=== PATIENT | male | born 1960 | race Caucasian/White ===

== ENCOUNTER → 2017-10-30 07:35 | Outpatient (CLI) | payer OTHER, SELFPAY ==
--- NOTE | 2017-10-30 | DI.RAD.S_ITS ---
PROCEDURE: FL UPPER GI W AIR INDICATIONS: 57 year-old male with dysphagia. COMPARISON: None. 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 No suspicious abdominal calcifications. Visualized solid organ contours appear normal. Several nonacute inferior right rib fractures are present.. Esophagus: Esophageal mucosa is normal on air-contrast views. On single-contrast views, there is normal esophageal peristalsis. No strictures, extrinsic mass effects, or diverticula. There is small hiatal hernia; no elicited gastroesophageal reflux. Patient was unable to ingest a calibrated barium tablet for further evaluation. Stomach: The stomach is normally distensible, with normal rugal fold thickness. No mucosal masses or ulcers. Pylorus and duodenal bulb appear normal in morphology. Duodenal folds are normal in thickness as well. IMPRESSION: Small hiatal hernia, without elicited gastroesophageal reflux during the examination. No mucosal abnormalities identified of the esophagus or stomach. Dictated by: Deep Elliott M.D. on 10/30/2017 at 8:34 Approved by: Deep Elliott M.D. on 10/30/2017 at 8:39
== END ==
PROVIDERS: PCP Family Medicine; Visit Provider Family Medicine
DX: R13.10 Dysphagia, unspecified (principal); K44.9 Diaphragmatic hernia without obstruction or gangrene
CPT/HCPCS: 74247

== ENCOUNTER → 2021-09-19 08:41 | Outpatient (CLI) | payer OTHER, SELFPAY ==
--- NOTE | 2021-09-19 | DI.MRI.S_ITS ---
PROCEDURE: MR LUMBAR SPINE WO CON INDICATIONS: Lumbago with sciatica, left side TECHNIQUE: Noncontrast sagittal T1 spin echo and T2 fast echo, sagittal STIR, and T2 fast spin echo through the lumbar spine. In cases with scoliosis, additional coronal T2 fast spin echo may be performed. COMPARISON: None. FINDINGS: Image quality: Excellent. Alignment and Curvature: There is trace, approximately 2-3 millimeters of L4-L5 anterolisthesis. Bone Marrow: Modic type 2 reactive endplate changes noted adjacent the L4-L5 disc. Small, benign intraosseous hemangioma noted in the S1 vertebral body. No acute vertebral body compression fractures. Spinal Cord: Conus medullaris terminates at the L1 level. Visualized cord demonstrates normal signal and size. Paraspinous Soft Tissues: No paravertebral masses. T12-L1: Normal appearance. L1-L2: Normal appearance. L2-L3: Loss of disc signal. Mild, diffuse disc bulge. Mild bilateral facet hypertrophy. Mild to moderate narrowing of the central canal. Mild to moderate bilateral neural foraminal narrowing. No neural compression. L3-L4: Loss of disc signal. Moderate, diffuse disc bulge. Mild bilateral facet hypertrophy. Mild ligamentum flavum hypertrophy. Severe narrowing of the central canal with compression of the nerve roots of the cauda equina. Mild to moderate bilateral neural foraminal narrowing. L4-L5: Loss of disc signal and height. Mild to moderate diffuse disc bulge. Moderate facet and mild ligamentum flavum hypertrophy. Severe narrowing of the central canal with compression of the nerve roots of the cauda equina. Mild right and severe left neural foraminal narrowing with compression of the exiting left L4 nerve root. L5-S1: Loss of disc signal and height. Mild, diffuse disc bulge. Mild bilateral facet hypertrophy. No central stenosis. Mild bilateral neural foraminal narrowing. No neural compression. IMPRESSION: 1. Multilevel degenerative disc disease. 2. Multilevel facet arthropathy. 3. Severe L3-L4 and L4-L5 central canal narrowing with compression of the traversing nerve roots of the cauda equina. 4. Severe left L4-L5 neural foraminal narrowing with compression of the exiting left L4 nerve root. 5. Trace L4-L5 degenerative spondylolisthesis. Dictated by: Afshan Lr MD, PhD on 09/19/2021 at 12:10 Approved by: Afshan Lr MD, PhD on 09/19/2021 at 12:13
== END ==
PROVIDERS: PCP Family Medicine; Referring Provider Family Medicine; Visit Provider Family Medicine
DX: M51.16 Intervertebral disc disorders with radiculopathy, lumbar region (principal); M51.17 Intervertebral disc disorders with radiculopathy, lumbosacral region; M47.26 Other spondylosis with radiculopathy, lumbar region; M47.27 Other spondylosis with radiculopathy, lumbosacral region; M48.061 Spinal stenosis, lumbar region without neurogenic claudication
CPT/HCPCS: 72148

== ENCOUNTER → 2023-06-08 09:08 | Outpatient (CLI) | payer OTHER, SELFPAY ==
--- NOTE | 2023-06-08 | DI.RAD.S_ITS ---
PROCEDURE: XR CERVICAL SPINE 4V OR 5V INDICATIONS: neck pain TECHNIQUE: 5 views of the cervical spine acquired. COMPARISON: None. FINDINGS: Bones: No acute fractures or dislocations to the C7 level. There is mild reversal of the normal cervical lordosis. 2 mm grade 1 anterolisthesis at C2-3. 3 mm grade 1 retrolisthesis at C4-5. Multilevel disc space narrowing and degenerative endplate changes are seen that are most prominent at the C3-4 and C4-5 disc space levels. There is multilevel uncovertebral joint and facet hypertrophy. Oblique views demonstrate multi to level moderate neural foraminal narrowing at C3-4 through C6-7 on the left. Right-sided neural foramina are not well evaluated due to positioning, and the degree of neural foraminal stenosis cannot be estimated. Soft tissues: No prevertebral soft tissue swelling. IMPRESSION: Moderate severe multilevel spondylosis and degenerative spondylolisthesis with multifocal neural foraminal narrowing. Cervical spine MRI could be performed for further evaluation if indicated clinically. Approved by: Deonte Samaniego M.D. on 06/08/2023 at 12:32
== END ==
PROVIDERS: PCP Family Medicine; Referring Provider Family Medicine; Visit Provider Family Medicine
DX: M47.812 Spondylosis without myelopathy or radiculopathy, cervical region (principal); M43.12 Spondylolisthesis, cervical region; M48.02 Spinal stenosis, cervical region; M54.2 Cervicalgia
CPT/HCPCS: 72050

== ENCOUNTER 2024-06-30 09:20 | Day surgery (SDC) | payer OTHER, SELFPAY ==
--- NOTE | 2024-06-30 | PATH_ITS ---
[facility] Accession Number: [id number] No. of containers..01 Tissue . 01 Material submitted: . colon - CECAL COLON POLYP . 01 Diagnosis: CECAL COLON POLYP: Tubular adenoma. STO 07/04/2024 1513 Local . 01 Electronically signed: . Gonzales Centeno MD, Pathologist NPI- [id number] . 01 Gross description: . Received in formalin with two patient identifiers and 1. Cecal colon polyp, is a single ramos soft tissue fragment, 1.3 x 0.6 x 0.5 cm. Inked blue, bisected, and submitted entirely in A1. ([id number]) /MRV 07/04/2024 1513 Local . 01 Pathologist provided ICD-10: D12.0 . 01 CPT . 051004 Specimen Comment: A courtesy copy of this report has been sent to [phone] Performed at: [address] [facility] [address], [place], [place] [id number] MD Gonzales Centeno MD Phone: [phone]
[2024-06-30 10:13] VITALS: BP 168/88; PULSE 103; RESP 16; TEMP 36.5; O2SAT 96
[2024-06-30] MEDS: SODIUM CHLORIDE 0.9% 1,000 ML 150 ML IV (10:19)
--- NOTE | 2024-06-30 10:50 | P.HP_ITS ---
History of Present Illness History of Present Illness Date Patient Seen: 06/30/24 Time Patient Seen: 10:50 Chief complaint: Colonoscopy Narrative: Jackson is a 63-year-old man here for a colonoscopy. His last one was 13 years ago. No known family history of colon cancer. [facility] Surgical History (Updated 06/30/24 @ 10:05 by Jessica Snow RN) History of surgery on lower extremity (~2023) History of back surgery (~2021) Hx of knee surgery (~2016) Social History Smoking Status: Former smoker Meds Home Medications and Allergies Home Medications Medication Instructions Recorded Confirmed Type sodium,potassium,mag sulfates 17.5 See Rx Instructions PO .COMPLEX 05/26/24 Rx gram-3.13 gram-1.6 gram oral soln #354 mL (Suprep Bowel Prep Kit) atorvastatin 10 mg tablet 10 mg PO DAILY 06/30/24 06/30/24 History gemfibrozil 600 mg tablet 600 mg PO BID 06/30/24 06/30/24 History lisinopril 10 mg tablet 20 mg PO DAILY 06/30/24 06/30/24 History multivitamin with minerals-folic 1 tab PO DAILY 06/30/24 06/30/24 History acid 12 mcg chewable tablet (Centrum Adults) omega 8-ulr-bgm-fish oil 60 mg-90 1 cap PO DAILY 06/30/24 06/30/24 History mg-500 mg capsule (Fish Oil) Allergies Allergy/AdvReac Type Severity Reaction Status Date / Time INGREDIENT: NKA - NO KNOWN Allergy Unknown Uncoded 09/09/17 11:47 ALLERGIES Exam Vital Signs (past 8 hours): - 06/30/24 10:13 Temperature 97.7 F Pulse Rate 103 H Respiratory Rate 16 Blood Pressure 168/88 H Pulse Oximetry 96 Oxygen Delivery Method Room Air Oxygen Delivery Method Room Air Const General: No acute distress Resp Effort & Inspection: normal respiratory effort Assessment & Plan Assessment and plan (1) Colon cancer screening: Status: Acute Plan Colonoscopy Time-Based Coding :: [TOTAL MINUTES] spent with patient and on the chart (including review of chart, obtaining history, exam, reviewing outside data, placing orders, documenting exam and treatment plan, and counseling patient) on [DATE]. 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
--- NOTE | 2024-06-30 11:20 | PM.OP.COLON ---
Operative Date/Time/Diagnoses Date of procedure: 06/30/24 Time of procedure: 11:20 Pre-op diagnosis: Colon cancer screening Post-op diagnosis: same Procedure & Clinicians Study performed: Colonoscopy Same procedure as scheduled: Yes Surgeon: Rhett Tolliver Procedure Notes Procedure in detail: Surgeon: Rhett Tolliver MD Anesthesia: Josephine Becerra CRNA Procedure: The patient was brought to the endoscopy suite, placed in left lateral decubitus position. The patient was connected to monitoring devices. A time-out was performed. Sedation was administered. Once the patient was adequately sedated, a digital rectal exam was performed and was normal. The scope was then inserted and advanced to the cecum where the appendiceal orifice was identified and photographed. The scope was then slowly withdrawn over greater than 6 minutes. The mucosa was thoroughly inspected. There was a 3 mm polyp in the cecum removed with a cold snare. Sigmoid colon diverticulosis was noted. The scope was retroflexed in the rectum. Internal hemorrhoids were noted. No other abnormalities were seen. The scope was straightened and removed. The patient was awakened and brought to recovery. Scope withdrawal time: 8 minutes Sedation time: 11 minutes EBL: 2 mL Findings: Small cecal polyp, sigmoid colon diverticulosis, internal hemorrhoids Post-procedure Disposition: PACU
[2024-06-30 11:21] VITALS: BP 108/71; PULSE 97; RESP 16; TEMP 37.2; O2SAT 95
[2024-06-30 11:26] VITALS: BP 105/71; PULSE 96; RESP 12; TEMP 37.1; O2SAT 95
[2024-06-30 11:33] VITALS: BP 109/75; PULSE 98; RESP 12; TEMP 37.1; O2SAT 96
== END 2024-06-30 11:49 | disposition home or self-care (01) ==
PROVIDERS: PCP Family Medicine; Referring Provider Surgery; Visit Provider Surgery
PROC: 0DJD8ZZ Inspection of Lower Intestinal Tract, Via Natural or Artificial Opening Endoscopic (ICD-10-PCS; CPT 45378; principal; 2024-06-30 10:30)
DX: Z12.11 Encounter for screening for malignant neoplasm of colon (principal); K57.30 Diverticulosis of large intestine without perforation or abscess without bleeding; K64.8 Other hemorrhoids; I10 Essential (primary) hypertension; Z87.891 Personal history of nicotine dependence; D12.0 Benign neoplasm of cecum
CPT/HCPCS: 45385; J2405; J2704